=== PATIENT | female | born 1980 | race Caucasian/White ===

== ENCOUNTER → 2019-09-22 08:15 | Outpatient (CLI) | payer BC, SELFPAY ==
--- NOTE | ~2019-09-22 | MMUS_ITS ---
EXAMINATION: MM diagnostic patricia LT w efe, US breast LT complete HISTORY: Palpable abnormality. TECHNIQUE: Additional 3-D tomosynthesis images of the left breast were performed and synthetic 2-D im ages were generated. CAD analysis was submitted and interpreted. High resolution left breast ultrasou nd was performed. COMPARISON: Comparison to multiple prior studies sequentially, with oldest reviewed study dated 02/07. FINDINGS: MAMMOGRAPHIC FINDINGS: The breasts are extremely dense, which lowers the sensitivity of mammography. There are benign-appear ing left breast calcifications. There are no suspicious masses or architectural distortion. There is a tissue marker in the left breast from previous benign biopsy. ULTRASOUND: Left breast ultrasound: There are in numerable simple and complicated as well as clustered microcysts throughout the left za ast. In addition, there is an irregular shaped hypoechoic partially cystic mass at 2:00, 5 cm from th e nipple measuring 1.6 x 0.8 x 0.6 cm. No internal vascularity or posterior features. At 8:00, 7 cm f rom the nipple, there is an oval circumscribed hypoechoic mass measuring 8 mm, greatest dimension wit hout internal vascularity or posterior features. At 8:00, 8 cm from the nipple, there is a spongiform -appearing hypoechoic mass measuring 1.2 cm in aggregate, likely a cluster of microcysts. 11:00, 3 cm from the nipple, there is a cluster of cysts measuring up to 1.4 cm in aggregate. IMPRESSION: 1. Probable benign left breast masses by ultrasound. 2. Recommend 6 month follow-up left breast ultrasound. BI-RADS category 3, probably benign findings. Reviewed, dictated and finalized at [facility]. 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 Probable benign left breast masses by ultrasound. 2. Recommend 6 month follow-up left breast ultrasound. BI-RADS category 3, probably benign findings.
== END ==
PROVIDERS: PCP Emergency Medicine; Visit Provider Obstetrics & Gynecology
DX: N63.20 Unspecified lump in the left breast, unspecified quadrant (principal); N64.4 Mastodynia; R92.8 Other abnormal and inconclusive findings on diagnostic imaging of breast
CPT/HCPCS: 76641; 77061; 77065; G0279

== ENCOUNTER → 2020-06-19 08:00 | Outpatient (CLI) | payer BC, SELFPAY ==
--- NOTE | ~2020-06-19 | US_ITS ---
US breast LT complete DATE: 06/19/2020 08:37 INDICATION: Six-month follow-up of probable benign left breast sonographic masses TECHNIQUE: High-resolution ultrasound imaging and color flow imaging of the complete left breast COMPARISON: 09/22/2019 diagnostic left digital mammogram and complete left breast ultrasound examinatio n FINDINGS: There are multiple scattered simple and complicated cysts of variable size, with circumscri bed margins, lack of internal vascularity, with through transmission and posterior enhancement. Some are septated or multiloculated, especially at 11:00 3 cm from the nipple. No suspicious mass or shadowing is detected.. IMPRESSION: BI-RADS Category 2: Benign Recommendation: Routine annual mammographic screening, with ultrasound correlation as appropriate in this patient with extremely dense stroma Reviewed, dictated and finalized at [facility]. Reviewed, dictated and finalized at [facility]. 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
== END ==
PROVIDERS: PCP Emergency Medicine; Visit Provider Obstetrics & Gynecology
DX: N60.02 Solitary cyst of left breast (principal)
CPT/HCPCS: 76641

== ENCOUNTER → 2021-05-16 08:23 | Outpatient (CLI) | payer BC, SELFPAY ==
--- NOTE | ~2021-05-16 | MMUS_ITS ---
EXAMINATION: MM diagnostic patricia BI w efe, US breast RT complete HISTORY: Left breast pain. Right breast screening. TECHNIQUE: ML, MLO and craniocaudal 3-D tomosynthesis images of both breasts were performed and synth etic 2-D images were generated. Bilateral rotated lateral cc views. CAD analysis was submitted and in terpreted. High resolution complete right breast ultrasound including all 4 quadrants and subareolar area was performed. COMPARISON: 06/19/2020 complete left breast ultrasound 09/22/2019 diagnostic left mammogram and complete left breast ultrasound 02/07/2014 bilateral diagnostic mammogram BREAST PARENCHYMAL COMPOSITION: The breasts are extremely dense, which lowers the sensitivity of mamm ography. FINDINGS: MAMMOGRAPHIC FINDINGS: There are 2 biopsy markers on left. History of prior bilateral benign breast biopsies. There are bilateral scattered benign microcalcifications. No suspicious mass, architectural distortion, malignant calcification, skin thickening or retraction or significant new or developing density of either breast is detected. ULTRASOUND: There are multiple scattered 11 millimeters or smaller circumscribed hypoechoic lesions and cysts and septated cysts, without internal vascularity or suspicious shadowing. IMPRESSION: 1. Benign findings 2. Routine mammographic screening is recommended BI-RADS Category 2: Benign finding(s). Reviewed, dictated and finalized at [facility]. IMPRESSION: 1. Benign findings 2. Routine mammographic screening is recommended BI-RADS Category 2: Benign finding(s).
== END ==
PROVIDERS: PCP Emergency Medicine; Visit Provider Obstetrics & Gynecology
DX: N64.4 Mastodynia (principal)
CPT/HCPCS: 76641; 77062; 77066; G0279